=== PATIENT | female | born 1940 | race Caucasian/White ===

== ENCOUNTER 2020-03-03 16:06 | Emergency (ER) | payer OTHER ==
[~2020-03-03] VITALS: Ht 172.7 cm; Wt 97.1 kg
[2020-03-03] MEDS ORDERED: FISH OIL 1,0001 EAC9 PO (16:34)
[2020-03-03] MEDS ORDERED: ARICEPT10 M1 PO (16:34)
[2020-03-03] MEDS ORDERED: HYDROCHLOROTHIA25 M2 PO (16:34)
[2020-03-03] MEDS ORDERED: CALCIUM + VITA1 EACH PO (16:34)
[2020-03-03] MEDS ORDERED: DORZOLAMIDE 2%10 ML OP (16:35)
[2020-03-03] MEDS ORDERED: LATANOPROST 0.2.5 ML OPHTHALMIC (16:35)
[2020-03-03] MEDS ORDERED: SPIRONOLACTONE25 MG PO (16:35)
[2020-03-03 17:17] VITALS: BP 153/74
== END 2020-03-03 17:19 | disposition home or self-care (01) ==
LOC: M.ERS 16:06
DX: S62.001A Unspecified fracture of navicular [scaphoid] bone of right wrist, initial encounter for closed fracture (principal); I10 Essential (primary) hypertension; Z90.49 Acquired absence of other specified parts of digestive tract; Z90.710 Acquired absence of both cervix and uterus; W23.0XXA Caught, crushed, jammed, or pinched between moving objects, initial encounter; Y93.89 Activity, other specified; Y92.89 Other specified places as the place of occurrence of the external cause; Y99.8 Other external cause status